=== PATIENT | female | born 1980 | race Caucasian/White ===

== ENCOUNTER → 2023-06-24 09:56 | Outpatient (CLI) | payer BC, SELFPAY ==
--- NOTE | ~2023-06-24 | MR_ITS ---
EXAMINATION: MR brain/brain stem wo/w con, MR orbits face neck wo/w con DATE: 06/24/2023 11:03 INDICATION: Recent head injury with concussion presenting with right eye pressure and strained vision TECHNIQUE: 1. Magnetic resonance imaging (MRI) of the brain and brainstem was performed without and with 10 mL M ultihance intravenous contrast. Sequences included sagittal and axial T1-weighted SE, axial diffusion -weighted FS SE, axial T2*-weighted GRE, axial T2-weighted FLAIR, and axial T2-weighted FSE. Postcont rast axial and coronal T1-weighted SE was obtained. Apparent diffusion coefficient (ADC) maps were cr eated. 2. MRI of the orbits was performed without and with the same 10 mm MultiHance intravenous contrast andrew corbin. Small [id number] sequences of the orbits included axial and coronal T2-weighted FS FSE, T1-we ighted FSE and postcontrast T1-weighted FSE. COMPARISON: None. FINDINGS: Brain MR: There are no areas of restricted diffusion to suggest acute infarction. No intracranial hemorrhage or abnormal intracranial mass lesion. There are no intraparenchymal signal abnormalities seen on the ot her pulse sequences. The ventricles are symmetric and normal in size. There are no abnormal extra-axi al fluid collections. Flow voids are seen in the cerebral arteries on the T2-weighted sequences consi stent with their expected patency. No areas of abnormal enhancement on the postcontrast images. Orbits MR: The orbits and optic nerves appear normal. No abnormally enhancing lesions identified. Bilateral ocul ar muscles appear normal and symmetric. Mild mucoperiosteal thickening the bilateral ethmoid and maxi llary sinuses. IMPRESSION: 1. Normal MR of the brain and orbits. Reviewed, dictated and finalized at location A. PATCHER IMPRESSION: 1. Normal MR of the brain and orbits.
== END ==
PROVIDERS: PCP Physician Assistant; Visit Provider Physician Assistant
DX: S09.90XA Unspecified injury of head, initial encounter (principal); F07.81 Postconcussional syndrome; H57.9 Unspecified disorder of eye and adnexa
CPT/HCPCS: 70543; 70553; A9577

== ENCOUNTER 2024-06-04 11:13 | Outpatient (CLI) | payer BC, SELFPAY ==
--- NOTE | ~2024-06-04 | US_ITS ---
EXAM: PELVIC ULTRASOUND HISTORY: Excessive and frequent menstruation with regular cycle COMPARISON: 12/17/2018. FINDINGS: UTERUS: 8.2 x 4.4 x 5.5 cm. The uterus is anteverted and anteflexed. The endometrial complex measures 14 mm. RIGHT OVARY: The right ovary is unremarkable in echogenicity and size measuring 1.9 x 3.1 x 3.0 cm. Dopplerable flow is identified. LEFT OVARY: The left ovary is unremarkable in echogenicity and size measuring 2.6 x 2.3 x 3.3 cm Dopplerable flow is identified. No free fluid is identified within the pelvis. IMPRESSION: Unremarkable sonographic evaluation of the pelvis, as detailed above. Reviewed, dictated and finalized at location A. RE SKATER
== END 2024-06-04 11:14 | disposition home or self-care (01) ==
PROVIDERS: PCP Family Medicine; Visit Provider Nurse Practitioner Women's Health
DX: N92.0 Excessive and frequent menstruation with regular cycle (principal)
CPT/HCPCS: 76856